=== PATIENT | male | born 1980 | race Caucasian/White ===

== ENCOUNTER 2020-09-12 08:04 | Inpatient (IN) ==
[2020-09-12] MEDS ORDERED: NS 0.9% 1000 ml BAG 1,000 ML IV ONE (08:17)
[2020-09-12 09:39] LABS: Hematocrit 41 % (42-52); Mean Corpuscular Volume 91 fL (80-94); Red Blood Count 4.45 10^6 /uL (4.18-5.48); Red Cell Distribution Width 12 % (10-15); White Blood Count 10.3 10^3/uL (3.5-10.8)
[2020-09-12 09:56] LABS: Urine Appearance Clear; Urine Bilirubin Negative (Negative); Urine Blood 1+ (Negative); Urine Color Straw; Urine Glucose 3+(>=500 mg/dL) (Negative); Urine Ketones Trace (Negative); Urine Nitrite Negative (Negative); Urine Protein Negative (Negative); Urine Specific Gravity 1.029 (1.010-1.030); Urine Urobilinogen Negative (Negative)
[2020-09-12 10:11] LABS: ABS Basophils 0.1 10^3/ul (0-0.2); ABS Eosinophils 0.1 10^3/ul (0-0.6); ABS Monocytes 0.5 10^3/ul (0-0.8); ABS Neutrophils 5.6 10^3/ul (1.5-7.7); Eosinophil % 0.9 %; Lymphocyte % 38.5 %; Mean Platelet Volume 9.3 fL (7.4-10.4); Nucleated Red Blood Cells % 0.2; Platelet Count 210 10^3/uL (150-450)
[2020-09-12 10:30] LABS: Urine Red Blood Cell Trace(0-2/hpf) (Absent); Urine White Blood Cell Trace(0-5/hpf) (Absent)
[2020-09-12 10:31] LABS: Hemoglobin 13.6 g/dL (14.0-18.0); Mean Corpuscular HGB Conc 33 g/dL (31-36); Mean Corpuscular Hemoglobin 31 pg (27-31)
[2020-09-12 10:33] LABS: TSH Ultra Thyroid Stim Horm 3.47 mcIU/mL (0.34-5.60)
[2020-09-12 10:43] LABS: Albumin 4.8 g/dL (3.2-5.2); Calcium 9.8 mg/dL (8.6-10.3); Chloride 96 mmol/L (101-111); Sodium 123 mmol/L (135-145)
[2020-09-12 11:12] LABS: ALT 31 U/L (7-52); Glucose 368 mg/dL (70-100)
[2020-09-12 11:13] LABS: Albumin/Globulin Ratio 6.9 (1-3); Alkaline Phosphatase 82 U/L (34-104); Cholesterol 376 mg/dL; Creatine Kinase 63 U/L (10-223); EGFR African American 349.6 (>60); EGFR Non-African American 288.9 (>60); Globulin 0.7 g/dL (2-4); HDL Cholesterol 18.5 mg/dL; Total Protein 5.5 g/dL (6.4-8.9); Triglycerides 7062 mg/dL
[2020-09-12 11:44] LABS: CKMB ng/mL 1.9 ng/mL (0.6-6.3); Troponin I 0.01 ng/mL (<0.03)
[2020-09-12 11:50] LABS: LDL Cholesterol Direct 57 mg/dL
[2020-09-12] MEDS ORDERED: Insulin Infusion 100unit/100mL 100 UNIT/100 ML BAG IV SCH ×2 (12:00→20:00)
[2020-09-12 14:40] LABS: Glucose Confirmatory 307 mg/dL (70-100)
[2020-09-12 15:37] LABS: Glucose 307 mg/dL (70-100)
[2020-09-12 16:30] LABS: Amylase 10 U/L (29-103); Lipase 152 U/L (11.0-82.0)
[2020-09-12 16:31] LABS: Calcium 9.4 mg/dL (8.6-10.3); Chloride 98 mmol/L (101-111); Potassium 4.2 mmol/L (3.5-5.0); Sodium 129 mmol/L (135-145)
[2020-09-12 16:47] LABS: Potassium, Whole Blood 4.6 mmol/L (3.4-4.5)
[2020-09-12 18:01] LABS: Calcium 9.4 mg/dL (8.6-10.3); Glucose 239 mg/dL (70-100)
[2020-09-12] MEDS ORDERED: D5LR 1000 ml BAG 1,000 ML IV SCH (19:00)
[2020-09-12] MEDS ORDERED: Dextrose 50% Syringe 50 ml 25 GM/50 ML SYRINGE IV PUSH PRN (19:43)
[2020-09-12] MEDS: Nicotine PATCH 7 MG/24 HR PATCH TRANSDERM SCH (20:17)
[2020-09-12 20:22] LABS: CO2 Carbon Dioxide 23 mmol/L (22-32); Glucose 216 mg/dL (70-100)
[2020-09-12 20:59] LABS: EGFR Non-African American 169.4 (>60)
[2020-09-12 21:00] LABS: Calcium 9.1 mg/dL (8.6-10.3)
[2020-09-13] MEDS ORDERED: D5LR 1000 ml BAG 1,000 ML IV SCH (00:17)
[2020-09-13 02:16] LABS: Potassium, Whole Blood 5.2 mmol/L (3.4-4.5)
[2020-09-13 02:32] LABS: BUN/Creatinine Ratio 15.8 (8-20); Blood Urea Nitrogen 9 mg/dL (6-24); CO2 Carbon Dioxide 26 mmol/L (22-32); Calcium 8.9 mg/dL (8.6-10.3); Chloride 105 mmol/L (101-111); EGFR African American 192.6 (>60); EGFR Non-African American 159.1 (>60); Glucose 139 mg/dL (70-100); Sodium 137 mmol/L (135-145)
[2020-09-13 02:45] LABS: Anion Gap 6 mmol/L (2-11)
[2020-09-13] MEDS ORDERED: Insulin Infusion 100unit/100mL 100 UNIT/100 ML BAG IV SCH ×2 (03:00→06:04)
[2020-09-13 05:20] LABS: HDL Cholesterol 21.6 mg/dL
[2020-09-13 05:32] LABS: CO2 Carbon Dioxide 24 mmol/L (22-32); Calcium 8.5 mg/dL (8.6-10.3); Chloride 105 mmol/L (101-111)
[2020-09-13 05:35] LABS: Potassium, Whole Blood 6.4 mmol/L (3.4-4.5)
[2020-09-13 05:37] LABS: BUN/Creatinine Ratio 13.6 (8-20); Blood Urea Nitrogen 8 mg/dL (6-24); EGFR Non-African American 152.9 (>60); Glucose 230 mg/dL (70-100)
[2020-09-13 05:44] LABS: Anion Gap 6 mmol/L (2-11); Sodium 135 mmol/L (135-145)
[2020-09-13 06:08] LABS: Cholesterol 201 mg/dL; HDL Cholesterol 22.2 mg/dL; Triglycerides 481 mg/dL
[2020-09-13 06:41] LABS: LDL Cholesterol Direct 54 mg/dL
[2020-09-13] MEDS ORDERED: Dextrose 50% Syringe 50 ml 25 GM/50 ML SYRINGE IV PUSH PRN (08:21)
[2020-09-13 08:28] LABS: Phosphorus 3.8 mg/dL (2.5-5.0)
[2020-09-13] MEDS: Nicotine PATCH 7 MG/24 HR PATCH TRANSDERM SCH (08:40)
[2020-09-13 10:08] LABS: Anion Gap 5 mmol/L (2-11); CO2 Carbon Dioxide 26 mmol/L (22-32); Calcium 8.7 mg/dL (8.6-10.3)
[2020-09-13 10:18] LABS: BUN/Creatinine Ratio 13.3 (8-20); Blood Urea Nitrogen 8 mg/dL (6-24); EGFR African American 181.5 (>60); Glucose 279 mg/dL (70-100)
[2020-09-13 10:19] LABS: Chloride 104 mmol/L (101-111); Sodium 135 mmol/L (135-145)
[2020-09-13 11:43] LABS: Potassium, Whole Blood 6.9 mmol/L (3.4-4.5)
[2020-09-13] MEDS ORDERED: Insulin GLARGINE 100 un/ml 10 ml VIAL SUBCUT SCH (21:00)
[2020-09-13 22:53] LABS: Potassium, Whole Blood 6.8 mmol/L (3.4-4.5)
[2020-09-14] MEDS: Nicotine PATCH 7 MG/24 HR PATCH TRANSDERM SCH (09:20)
[2020-09-14 09:49] LABS: BUN/Creatinine Ratio 16.9 (8-20); Blood Urea Nitrogen 12 mg/dL (6-24); CO2 Carbon Dioxide 26 mmol/L (22-32); Calcium 9.2 mg/dL (8.6-10.3); Chloride 100 mmol/L (101-111); EGFR African American 149.4 (>60); EGFR Non-African American 123.5 (>60); Glucose 388 mg/dL (70-100); Sodium 134 mmol/L (135-145)
[2020-09-14 10:49] LABS: Anion Gap 8 mmol/L (2-11)
[2020-09-14 11:17] VITALS: BP 140/91
== END 2020-09-14 13:14 | disposition home or self-care (01) | DRG 423 ==
LOC: ED 08:04 → ICU 11:38 → MEDTELE 09-13 17:04
PROVIDERS: ADMIT Internal Medicine Critical Care Medicine; ATTEND Student in an Organized Health Care Education/Training Program